=== PATIENT | female | born 1940 | race Caucasian/White ===

== ENCOUNTER 2019-08-24 11:21 | Inpatient (IN) | payer MEDICARE, OTHER, SELFPAY ==
[2019-08-24] VITALS (74 sets, daily range): BP systolic 48–141; BP diastolic 13–112; PULSE 0–165; RESP 14–40; O2SAT 82–100; BMI 21.4
--- NOTE | 2019-08-24 11:22 | ED_ITS ---
Entered by Leslie Ndiaye, acting as scribe for Octavio Aly DO HPI - SOB/Dyspnea General: Chief Complaint: General Medical Stated Complaint: resp distress Time Seen by Provider: 08/24/19 11:32 History of Present Illness: HPI Narrative: 78 yo female presents with respiratory distress. Pt had an Igel placed by EMS. Pt was with neighbors and they had been planning to bring her in for chest pain she having had chest pain prior to calling the ambulance pain became worse and they called the ambulance instead. When EMS arrived they report she was vocal they got her loaded up into the ambulance and began driving here she went into a bradycardia and then asystole after 2 rounds of CPR and 2 doses of epi they were able to get her back to use and I gel and were unable to intubate her. Upon arrival here she had spontaneous circulation with I gel in place I gel was immediately removed and patient was intubated see the remainder below. MD elicited complaint: shortness of breath Severity: severe Review of Systems General: Reports: ROS unobtainable due to endotracheal tube and ROS unobtainable due to medical condition PFSH ED PFSH: Statuses (acute, chronic, etc) shown below reflect problem list status as previously entered and may not be historically accurate Medical History Anemia (Acute) Iron deficiency Arthritis (Acute) Atrial fibrillation (Acute) Chronic Cardiopulmonary arrest (Acute) GI bleeding (Acute) Nephrolithiasis (Acute) Pelvic fracture (Acute) Peptic ulcer disease (Acute) Radius fracture (Acute) Renal failure (Acute) Spinal fracture (Acute) Thyroid disease (Acute) Transaminitis (Acute) Ulna fracture (Acute) Surgical History H/O lithotripsy (Acute) H/O: hysterectomy (Acute) Hx of breast augmentation (Acute) Social History Smoking and tobacco status: unknown if ever smoked Physical Exam Narrative: EXAM NARRATIVE: Pt was brought to the ER in respiratory distress, EMS had an Igel placed upon arrival. Pt is unable to answer questions at this time. Const: COMMON NORMALS: negative for oriented x3 GENERAL APPEARANCE: in distress Cardio: COMMON NORMALS: negative for regular rate and negative for regular rhy thm RATE: abnormal rate and tachycardic RHYTHM: abnormal rhythm and abnormal rhythm Neuro: COMMON NORMALS: negative for oriented x3 Procedures Central Line Placement Left SC: Patient Placed on Monitor/Pulse Ox: Yes MD Prep: mask, gown and gloves Central Line Prep: Chlorhexidine scrub Local Anesthetic: lidocaine 1% Ultrasound Used for Placement: Yes Central Line Lumen Inserted: triple Post Procedure: sutured in place, good blood return, all ports aspirated, flushed, capped and sterile dressing applied Post Procedure X-Ray: tip of catheter in good position and no pneumothorax seen Patient Tolerated Procedure: well Complications: none Intubation Time out performed: No sedative: Etomidate paralytic: Succinylcholine Laryngoscope: Vince ET Tube Size: 8.5 ET Tube Uncuffed: No Tube Secured Depth (cm): 22 Tube Secured Location: teeth Tube Placement Confirmation: visualized tube passing through cords, equal breath sounds bilaterally, no breath sounds over epigastrium and confirmation by capnometry Patient Tolerated Procedure: well Intubation Complications: none Course ED course: Consulted Dr. Bonilla as well as Dr. Rowe. Dr. Bonilla will consider taking her to the [facility] they will discuss with Dr. Rowe. Set central line placed in the ER. Reviewed labs with Dr. León. Vital Signs: Vital signs: Vital Signs Pulse Rate 0 L 08/24/19 23:35 Respiratory Rate 14 08/24/19 21:15 Blood Pressure 67/47 08/24/19 22:50 Pulse Oximetry 89 L 08/24/19 23:10 MDM - SOB/Dyspnea Lab Data: Labs: Lab Results 08/24/19 08/24/19 08/24/19 Range/Units 11:32 11:43 11:50 WBC 39.4 H* (4.0-10.0) 10^3/ uL RBC 4.99 (4.1-5.3) 10^6/u L Hgb 15.5 H (11.5-15.3) g/dL Hct 52.2 H (37.0-47.0) % MCV 104.6 H (81-99) fL MCH 31.1 (28.0-34.0) pg MCHC 29.7 L (30.0-36.0) g/dL RDW 15.7 H (12.1-15.1) % Plt Count 293 (130-400) 10^3/c mm MPV 10.9 H (7.4-10.4) fL Neut % (Auto) 90.7 % Lymph % (Auto) 2.3 % [place] % (Auto) 3.7 % Eos % (Auto) 0.0 % Baso % (Auto) 0.1 % Neut # (Auto) 35.7 H (1.8-7.7) 10^3/u L Lymph # (Auto) 0.9 (0.8-4.8) 10^3/u L [place] # (Auto) 1.5 H (0.2-0.9) 10^3/u L Eos # (Auto) 0.0 (0.0-0.8) 10^3/u L Baso # (Auto) 0.0 (0.0-0.1) 10^3/u L Nucleated RBC % (a uto) 0.5 % Total Counted 100 (0-100) Segmented Neutroph ils 53 % Band Neutrophils 41.0 % Lymphocytes (Manua l) 2 % Monocytes (Manual) 3.0 % Absolute Monocytes 1.2 H (0.1-0.6) 10^3/c mm Metamyelocytes 1.0 % Nucleated RBCs # 0.2 /100WBC Platelet Estimate Normal (Normal) Specimen Type Arterial Sample Site Femoral, left ABG pH 6.84 L* (7.35-7.45) ABG pCO2 27.0 L (35-45) mmHg ABG pO2 482.0 H* (80.0-100.0) mmH g ABG HCO3 4.6 L (22-26) mmol/L ABG O2 Saturation 96.8 ABG Base Excess -29.0 L (-2.0-2.0) mmol/ L Felix Test N/a A-a O2 Gradient 178.9 H (5-10) mmHg Hematocrit 47.7 H (37-47) % Hgb O2 Saturation 95.5 (95-100) % Carboxyhemoglobin Not Reportable Methemoglobin 2.6 H (0.4-1.5) % Total Hemoglobin 15.6 (12-16) g/dL Sodium 125.0 L (131-143) mmol/L Potassium 4.6 (3.5-5.0) mmol/L Glucose 150.0 H (70-115) mg/dL Ionized Calcium 1.2 (1.1-1.4) mmol/L Respiration Rate 16.0 % O2 Delivery Device Vent FiO2 100.0 % Tidal Volume 0.45 PEEP 8.0 cmH20 Med Dir ID cak Blood Gas Notified Time 2345 Chloride (98-107) mmol/L Carbon Dioxide (22-29) mmol/L Anion Gap (5-19) BUN (8-23) mg/dL Creatinine (0.5-0.9) mg/dL Calcium (8.5-10.5) mg/dL Iron (37-145) ug/dL TIBC mcg/dl % Saturation (20-50) % Unsat Iron Binding (112-347) ug/dL Total Bilirubin (0.15-1.2) mg/dL AST (0-32) U/L ALT (0-33) U/L Alkaline Phosphata se (35-105) IU/L Troponin T Baselin e (0-10) ng/mL Troponin T 120 Min picayune (0-10) ng/mL Delta Troponin T (0-10) ABS# Total Protein (6.6-8.7) g/dL Albumin (3.5-5.2) g/dL Globulin (1.3-4.6) g/dL Procalcitonin (0-0.5) ng/mL Urine Color Yellow (Yellow) Urine Appearance Cloudy (CLEAR) Urine pH 5 (5-7) Ur Specific Gravit y 1.020 (1.005-1.030) Urine Protein Trace (Negative) Urine Glucose (UA) Norm (Normal) Urine Ketones Negative (Negative) Urine Occult Blood Neg (Negative) Urine Nitrate Negative (Negative) Urine Bilirubin 1+ H (NEGATIVE) Urine Urobilinogen Norm (Negative) mg/dL Ur Leukocyte Jessica ase Negative (Negative) Urine RBC None (0-2) /hpf Urine WBC None (0-5) /hpf Ur Squamous Epith Cells 0-4 H (0-5) Amorphous Sediment 1+ Urine Bacteria 1+ H (NONE) Urine Mucus Trace 08/24/19 08/24/19 08/24/19 Range/Units 11:50 11:50 11:50 WBC (4.0-10.0) 10^3/ uL RBC (4.1-5.3) 10^6/u L Hgb (11.5-15.3) g/dL Hct (37.0-47.0) % MCV (81-99) fL MCH (28.0-34.0) pg MCHC (30.0-36.0) g/dL RDW (12.1-15.1) % Plt Count (130-400) 10^3/c mm MPV (7.4-10.4) fL Neut % (Auto) % Lymph % (Auto) % [place] % (Auto) % Eos % (Auto) % Baso % (Auto) % Neut # (Auto) (1.8-7.7) 10^3/u L Lymph # (Auto) (0.8-4.8) 10^3/u L [place] # (Auto) (0.2-0.9) 10^3/u L Eos # (Auto) (0.0-0.8) 10^3/u L Baso # (Auto) (0.0-0.1) 10^3/u L Nucleated RBC % (a uto) % Total Counted (0-100) Segmented Neutroph ils % Band Neutrophils % Lymphocytes (Manua l) % Monocytes (Manual) % Absolute Monocytes (0.1-0.6) 10^3/c mm Metamyelocytes % Nucleated RBCs # /100WBC Platelet Estimate (Normal) Specimen Type Sample Site ABG pH (7.35-7.45) ABG pCO2 (35-45) mmHg ABG pO2 (80.0-100.0) mmH g ABG HCO3 (22-26) mmol/L ABG O2 Saturation ABG Base Excess (-2.0-2.0) mmol/ L Felix Test A-a O2 Gradient (5-10) mmHg Hematocrit (37-47) % Hgb O2 Saturation (95-100) % Carboxyhemoglobin Methemoglobin (0.4-1.5) % Total Hemoglobin (12-16) g/dL Sodium 124 L (131-143) mmol/L Potassium 5.2 H (3.5-5.0) mmol/L Glucose 147 H (70-115) mg/dL Ionized Calcium (1.1-1.4) mmol/L Respiration Rate % O2 Delivery Device FiO2 % Tidal Volume PEEP cmH20 Med Dir ID Blood Gas Notified Time Chloride 93 L (98-107) mmol/L Carbon Dioxide 4 L* (22-29) mmol/L Anion Gap 32.2 H (5-19) BUN 74 H (8-23) mg/dL Creatinine 6.9 H* (0.5-0.9) mg/dL Calcium 9.3 (8.5-10.5) mg/dL Iron 67 (37-145) ug/dL TIBC 180 mcg/dl % Saturation 37.2 (20-50) % Unsat Iron Binding 113 (112-347) ug/dL Total Bilirubin 0.3 (0.15-1.2) mg/dL AST 94 H (0-32) U/L ALT 39 H (0-33) U/L Alkaline Phosphata se 134 H (35-105) IU/L Troponin T Baselin e 195 H* (0-10) ng/mL Troponin T 120 Min picayune (0-10) ng/mL Delta Troponin T (0-10) ABS# Total Protein 7.7 (6.6-8.7) g/dL Albumin 3.8 (3.5-5.2) g/dL Globulin 3.9 (1.3-4.6) g/dL Procalcitonin 56.49 H (0-0.5) ng/mL Urine Color (Yellow) Urine Appearance (CLEAR) Urine pH (5-7) Ur Specific Gravit y (1.005-1.030) Urine Protein (Negative) Urine Glucose (UA) (Normal) Urine Ketones (Negative) Urine Occult Blood (Negative) Urine Nitrate (Negative) Urine Bilirubin (NEGATIVE) Urine Urobilinogen (Negative) mg/dL Ur Leukocyte Jessica ase (Negative) Urine RBC (0-2) /hpf Urine WBC (0-5) /hpf Ur Squamous Epith Cells (0-5) Amorphous Sediment Urine Bacteria (NONE) Urine Mucus 08/24/19 08/24/19 Range/Units 13:05 14:15 WBC (4.0-10.0) 10^3/ uL RBC (4.1-5.3) 10^6/u L Hgb (11.5-15.3) g/dL Hct (37.0-47.0) % MCV (81-99) fL MCH (28.0-34.0) pg MCHC (30.0-36.0) g/dL RDW (12.1-15.1) % Plt Count (130-400) 10^3/c mm MPV (7.4-10.4) fL Neut % (Auto) % Lymph % (Auto) % [place] % (Auto) % Eos % (Auto) % Baso % (Auto) % Neut # (Auto) (1.8-7.7) 10^3/u L Lymph # (Auto) (0.8-4.8) 10^3/u L [place] # (Auto) (0.2-0.9) 10^3/u L Eos # (Auto) (0.0-0.8) 10^3/u L Baso # (Auto) (0.0-0.1) 10^3/u L Nucleated RBC % (a uto) % Total Counted (0-100) Segmented Neutroph ils % Band Neutrophils % Lymphocytes (Manua l) % Monocytes (Manual) % Absolute Monocytes (0.1-0.6) 10^3/c mm Metamyelocytes % Nucleated RBCs # /100WBC Platelet Estimate (Normal) Specimen Type Arterial Sample Site Fem,l ABG pH 6.91 L* (7.35-7.45) ABG pCO2 14.0 L* (35-45) mmHg ABG pO2 231.0 H* (80.0-100.0) mmH g ABG HCO3 2.8 L (22-26) mmol/L ABG O2 Saturation 96.7 ABG Base Excess -28.7 L (-2.0-2.0) mmol/ L Felix Test N/a A-a O2 Gradient 167.9 H (5-10) mmHg Hematocrit 48.5 H (37-47) % Hgb O2 Saturation 96.4 (95-100) % Carboxyhemoglobin Methemoglobin 1.5 (0.4-1.5) % Total Hemoglobin 15.8 (12-16) g/dL Sodium 126.0 L (131-143) mmol/L Potassium 5.4 H (3.5-5.0) mmol/L Glucose 106.0 (70-115) mg/dL Ionized Calcium 1.2 (1.1-1.4) mmol/L Respiration Rate % O2 Delivery Device Vent FiO2 60.0 % Tidal Volume PEEP cmH20 Med Dir ID Cak Blood Gas Notified Time 1320 Chloride (98-107) mmol/L Carbon Dioxide (22-29) mmol/L Anion Gap (5-19) BUN (8-23) mg/dL Creatinine (0.5-0.9) mg/dL Calcium (8.5-10.5) mg/dL Iron (37-145) ug/dL TIBC mcg/dl % Saturation (20-50) % Unsat Iron Binding (112-347) ug/dL Total Bilirubin (0.15-1.2) mg/dL AST (0-32) U/L ALT (0-33) U/L Alkaline Phosphata se (35-105) IU/L Troponin T Baselin e (0-10) ng/mL Troponin T 120 Min picayune 317.30 H (0-10) ng/mL Delta Troponin T 122.30 H* (0-10) ABS# Total Protein (6.6-8.7) g/dL Albumin (3.5-5.2) g/dL Globulin (1.3-4.6) g/dL Procalcitonin (0-0.5) ng/mL Urine Color (Yellow) Urine Appearance (CLEAR) Urine pH (5-7) Ur Specific Gravit y (1.005-1.030) Urine Protein (Negative) Urine Glucose (UA) (Normal) Urine Ketones (Negative) Urine Occult Blood (Negative) Urine Nitrate (Negative) Urine Bilirubin (NEGATIVE) Urine Urobilinogen (Negative) mg/dL Ur Leukocyte Jessica ase (Negative) Urine RBC (0-2) /hpf Urine WBC (0-5) /hpf Ur Squamous Epith Cells (0-5) Amorphous Sediment Urine Bacteria (NONE) Urine Mucus Critical Care Time Critical Care Time: Critical Care Time: Yes Total Critical Care Time: 45 Attestation: This case had a high probability of a clinically significant, sudden, or life threatening deterioration of this patient's condition which required my full and direct attention, intervention and personal management. Discharge Plan Discharge Patient Disposition: Admitted As Inpatient Admit Provider: Ventura León Clinical Impression: Postoperative cardiac arrest, Anemia, Atrial fibrillation, Septic shock, Metabolic acidosis Condition: Critical Discharge Date/Time: 08/24/19 17:30 Coding Level of Care Code ED Customer Orders Clerk for Chg Fwd The documentation recorded by the Senthil cowan Kialy, accurately reflects the service I personally performed and the decisions made by , Octavio Aly, Aug 24, 2019 11:21
--- NOTE | 2019-08-24 11:36 | ECG_ITS ---
Measurements Intervals [place] Rate: 111 P: NH: 0 QRS: 48 QRSD: 93 T: 244 QT: 320 QTc: 435 ATRIAL FIBRILLATION WITH RAPID VENTRICULAR RESPONSE MODERATE T-WAVE ABNORMALITY, CONSIDER ANTEROLATERAL ISCHEMIA [-0.1+ mV T WAVE IN V3 MODERATE T-WAVE ABNORMALITY, CONSIDER INFERIOR ISCHEMIA [-0.1+ mV T WAVE IN II II/aVF] Compared to ECG 07/14/2015 04:13:22 T-wave abnormality now present Possible ischemia now present Electronically Signed On 08-24-2019 18:33:55 MARKETING AUTOMATION MANAGER by Dao Perez M.D. [email or web address]
--- NOTE | 2019-08-24 11:36 | XRR_ITS ---
PROCEDURE INFORMATION: Exam: XR Chest, 1 View Exam date and time: 08/24/2019 11:52 AM Age: 78 years old Clinical indication: Other: Post code TECHNIQUE: Imaging protocol: XR of the chest Views: 1 view. COMPARISON: CR Chest 2 views* [id number] 06/09/2016 3:11 PM FINDINGS: Tubes, catheters and devices: Endotracheal tube is slightly above the bobbi. Nasogastric tube coiled within the stomach Lungs: Lungs are well aerated without a focal area of consolidation. Pleural space: Unremarkable. No pleural effusion. No pneumothorax. Heart/Mediastinum: Unremarkable. No cardiomegaly. Bones/joints: Unremarkable. Other findings: Lucency below the diaphragm suspicious for free air. Recommend further evaluation. XR/XR chest 1V portable [id number] IMPRESSION: 1. Lucency below the diaphragm suspicious for free air. Recommend further evaluation. 2. Lungs are well aerated without a focal area of consolidation.
[2019-08-24 11:44] LABS: ABG PH Result 6.84 (7.35-7.45); Alveolar-Arterial Oxygen Gradi 178.9 mmHg (5-10); Arterial Blood Gas Hematocrit 47.7 % (37-47); Blood Gas Sample Site Femoral, left; Blood Gas Sample Type Arterial; Blood Gas Tidal Volume 0.45; HCO3 ABG 4.6 mmol/L (22-26); HGB O2 Sat 95.5 % (95-100); Ionized Calcium Level - ABG 1.2 mmol/L (1.1-1.4); Methemoglobin 2.6 % (0.4-1.5); Oxygen Device VENT; Oxygen Saturation ABG 96.8; Potassium Level - ABG 4.6 mmol/L (3.5-5.0); Total Hemoglobin 15.6 g/dL (12-16)
[2019-08-24 11:54] LABS: Basophils % 0.1 %; Hematocrit 52.2 % (37.0-47.0); Hemoglobin 15.5 g/dL (11.5-15.3); Lymphocytes # 0.9 10^3/uL (0.8-4.8); Lymphocytes % 2.3 %; Mean Corpuscular HGB Conc 29.7 g/dL (30.0-36.0); Mean Corpuscular Hemoglobin 31.1 pg (28.0-34.0); Mean Corpuscular Volume 104.6 fL (81-99); Mean Platelet Volume 10.9 fL (7.4-10.4); Monocytes # 1.5 10^3/uL (0.2-0.9); Monocytes % 3.7 %; Neutrophils # 35.7 10^3/uL (1.8-7.7); Neutrophils % 90.7 %; Nucleated Red Blood Cells # 0.2 /100WBC; Nucleated Red Blood Cells % 0.5 %; Platelet Count 293 10^3/cmm (130-400); Red Blood Count 4.99 10^6/uL (4.1-5.3); Red Cell Distribution Width 15.7 % (12.1-15.1)
[2019-08-24 12:19] LABS: Albumin Level 3.8 g/dL (3.5-5.2); Alkaline Phosphatase 134 IU/L (35-105); Anion Gap 32.2 (5-19); Blood Urea Nitrogen 74 mg/dL (8-23); Calcium 9.3 mg/dL (8.5-10.5); Chloride 93 mmol/L (98-107); Globulin 3.9 g/dL (1.3-4.6); Glucose 147 mg/dL (74-106); Potassium 5.2 mmol/L (3.5-5.1); Sodium 124 mmol/L (136-145); Total Bilirubin 0.3 mg/dL (0.15-1.2); Total Protein 7.7 g/dL (6.6-8.7)
[2019-08-24 12:20] LABS: Alanine Aminotransferase 39 U/L (0-33); Aspartate Amino Transferase 94 U/L (0-32)
[2019-08-24 12:21] LABS: Carbon Dioxide 4 mmol/L (22-29); Troponin(5th) Baseline 195 ng/mL (0-10)
[2019-08-24 12:22] LABS: Slide Review Slide Review Perform
[2019-08-24 12:23] LABS: White Blood Count 39.4 10^3/uL (4.0-10.0)
[2019-08-24] MEDS: propofol 1,000 MG/100 ML INJ 1.7 MG IV (12:24)
[2019-08-24 12:25] LABS: Absolute Segmented Neutrophil 20.8 10/cmm (1.6-7.1); Band Neutrophils Absolute 16.2 10^3/cmm (0.0-1.2); Lymphocytes 2 %; Monocytes Absolute 1.2 10^3/cmm (0.1-0.6); Platelet Estimate Normal (Normal); Segmented Neutrophils 53 %; Total Cells Counted 100 (0-100)
--- NOTE | 2019-08-24 13:13 | CT_ITS ---
WS: [id number] CT ABDOMEN PELVIS TECHNIQUE: Noncontrast CT of the abdomen and pelvis with coronal and sagittal reformatted images. CLINICAL INFORMATION: abd pain/ sub diaphragmatic air? COMPARISON: None. DLP: 414.[address] scans at [facility] use at least one of these dose optimization techniques: automat ed exposure control; mA and/or kV adjustment per patient size (includes targeted exams where dose is matched to clinical indication); or iterative reconstruction. FINDINGS: No free air. Enteric tube with tip in the stomach. Stomach is decompressed. Proximal duodenum is deco mpressed. Air distended colon. Fluid distended cecum extends into the pelvis. Air-fluid levels in the right colon, transverse colon, and splenic flexure.. Findings likely due to adynamic ileus. Left brandin cending colon is relatively decompressed. Sigmoid colon is decompressed. Normal noncontrast liver. Normal gallbladder. Normal noncontrast spleen. Adrenal glands are normal. N o hydronephrosis. Aortic calcification. Normal caliber abdominal aorta. Chronic emphysematous changes . Atelectasis right lung base. Prior postoperative changes bilateral breast implants. Grade 1 anterol isthesis L4 on L5. Attempted notification Octavio Aly DO at 08/24/2019 2:21 PM. Not currently available for verbal report. CT/CT abdomen pelvis wo con [id number] IMPRESSION: 1. Fluid-filled patulous cecum extends into the pelvis. Prominent gaseous dist ention and air-fluid levels in the right colon and transverse colon likely due to adynamic ileus. Left colon and sigmoid colon appear decompressed. 2. Enteric tube with tip in the stomach. 3. No free air. 4. No hydronephrosis. 5. Normal caliber abdominal aorta. 6. No free fluid in the pelvis. 7. Rivers catheter. 8. Grade 1 anterolisthesis L4 on L5.
[2019-08-24 13:15] LABS: Protein Urine Trace (Negative); Urine Appearance Cloudy (CLEAR); Urine Color Yellow (Yellow); pH Urine 5 (5-7)
[2019-08-24 13:16] LABS: Add Urine Microscopic? YES; Bilirubin Urine 1+ (NEGATIVE); Blood Urine Neg (Negative); Glucose Urine UA Norm (Normal); Ketones Urine Negative (Negative); Leukocyte Esterase Urine Negative (Negative); Nitrate Urine Negative (Negative); Urobilinogen Urine Norm (Negative)
--- NOTE | 2019-08-24 13:36 | ECG_ITS ---
Measurements Intervals [place] Rate: 131 P: MD: 0 QRS: 52 QRSD: 89 T: 242 QT: 343 QTc: 507 ATRIAL FIBRILLATION WITH RAPID VENTRICULAR RESPONSE LOW QRS VOLTAGE IN EXTREMITY LEADS [QRS DEFLECTION < 0.5 mV IN LIMB LEADS] ST DEVIATION AND MODERATE T-WAVE ABNORMALITY, CONSIDER ANTEROLATERAL ISCHEMIA [-0.1+ mV T WAVE IN V3-V6] ST DEVIATION AND MODERATE T-WAVE ABNORMALITY, CONSIDER INFERIOR ISCHEMIA [-0.1+ mV T WAVE IN II/aVF] WARNING: DATA QUALITY MAY AFFECT INTERPRETATION Compared to ECG 07/14/2015 04:13:22 Low QRS voltage now present T-wave abnormality now present Possible ischemia now present Electronically Signed On 08-24-2019 18:38:28 URGENT CARE by Dao Perez M.D. [email or web address]
[2019-08-24 13:41] LABS: Add Urine Culture? No; Amorphous Sediment Urine 1+; Bacteria Urine 1+; Mucus Urine TRACE; Squamous Epithelial Cell Urine 0-4 (0-5)
--- NOTE | 2019-08-24 14:37 | CTR_ITS ---
PROCEDURE INFORMATION: Exam: CT Chest Without Contrast Exam date and time: 08/24/2019 3:26 PM Age: 78 years old Clinical indication: Shortness of breath; Additional info: Copd/pna TECHNIQUE: Imaging protocol: Computed tomography of the chest without contrast. Total DLP: 612.66 mGy-cm Radiation optimization: All CT scans at this facility use at least one of these dose optimization techniques: automated exposure control; mA and/or kV adjustment per patient size (includes targeted exams where dose is matched to clinical indication); or iterative reconstruction. COMPARISON: CR XR chest 1V portable [id number] 08/24/2019 11:56 AM FINDINGS: Tubes, catheters and devices: NG tube tip in the stomach. Endotracheal tube at the bobbi. Lungs: Partial right lower lobe consolidation and minimal partial right upper lobe consolidation, no obstructing central endobronchial lesion. Pleural space: No pleural effusion. No pneumothorax. Heart: No cardiomegaly. No pericardial effusion. Aorta: No aortic aneurysm. Lymph nodes: No significant adenopathy. Bones/joints: No acute findings. Soft tissues: Bilateral breast implants. CT/CT chest con [id number] IMPRESSION: Right lung pneumonia most prominent in the right lower lobe. Endotracheal tube tip at the bobbi. Radiation Dose CTDIVOL = (mGy): DLP = 612.66 (mGy-cm)
--- NOTE | 2019-08-24 14:56 | PC.NURSE ---
Anabela in lab reported a critical 2 hour trop of 317.30 and 2 hour delta 122.30
[2019-08-24] MEDS: vecuronium 10 mg SDV IV (15:04)
[2019-08-24] MEDS: levofloxacin-dextrose 5 % 500 MG/100 ML PREMIX 100 MG IV (15:05)
[2019-08-24 15:12] LABS: ABG PCO2 27.2 mmHg (35-45); ABG PH Result 6.95 (7.35-7.45); Arterial Blood Gas Hematocrit 47.4 % (37-47); Base Excess ABG -25.2 mmol/L (-2.0-2.0); Blood Gas Sample Site Femoral, left; Blood Gas Sample Type Arterial; Blood Gas Tidal Volume 0.45; HGB O2 Sat 94.4 % (95-100); Ionized Calcium Level - ABG 1.1 mmol/L (1.1-1.4); Methemoglobin 3.1 % (0.4-1.5); Oxygen Device VENT; Oxygen Saturation ABG 96.4; Potassium Level - ABG 4.8 mmol/L (3.5-5.0); Total Hemoglobin 15.5 g/dL (12-16)
[2019-08-24] MEDS: sodium chloride 0.9% 1,000 ML 999 ML IV (15:13)
[2019-08-24] MEDS: sodium bicarbonate 8.4% 1 mEq/mL 50mL Syr 100 MEQ IVP (15:16)
[2019-08-24] MEDS: artificial tears Op Oint 3.5 gm 1 APPLIC EYE-BOTH (15:33)
[2019-08-24] MEDS: sodium chlor 0.9% + KCl 20 mEq 20 MEQ/1,000 ML BAG 125 MEQ IV (15:38)
[2019-08-24 15:45] LABS: Procalcitonin 56.49 ng/mL (0-0.5)
[2019-08-24] MEDS: vancomycin 1,000 MG in sodium chloride 0.9% 250 ML 250 MG IV (15:55)
[2019-08-24 15:56] LABS: Iron 67 ug/dL (37-145); Percent Saturation 37.2 % (20-50); Total Iron Binding Capacity 180 mcg/dl; Unsaturated Iron Binding 113 ug/dL (112-347)
--- NOTE | 2019-08-24 16:04 | PC.NURSE ---
too fast to do the procedure. Pt is now in A-fib.
--- NOTE | 2019-08-24 16:18 | P.DS_ITS ---
Discharge Providers Date of Admission: 08/24/19 14:16 Date of Discharge: 08/24/19 Attending Provider at Admission: Ventura León MD Attending Provider at Discharge: Ventura León MD Primary Care Provider: Aditi Colon MD Reason for Visit Reason for Visit: Reason For Visit: resp distress Physical Exam Urinary Catheter Management^: Rivers: Cath Placed During This Visit: no Discharge Data Data Completed and Pending: Completed Studies During Hospitalization Category Date Time Status CT abdomen pelvis wo con [id number] Stat Cat Scan 08/24/19 13:13 Completed XR chest 1V rosemary ble [id number] Stat Exams 08/24/19 11:36 Completed Pending at discharge Category Date Time Status CT chest wo con 7 1250 Urgent Cat Scan 08/24/19 14:37 Ordered ABG FULL [Arteria l Blood Gas Full] Routine Lab 08/24/19 11:32 Results Arterial Blood Ga s Full Routine Lab 08/24/19 Ordered Arterial Blood Ga s Full Routine Lab 08/24/19 15:00 Results Basic Metabolic P mimi Timed Lab 08/24/19 18:00 Ordered Blood Culture Sta t Lab 08/24/19 12:51 Results Influenza A&B by IFA Stat Lab 08/24/19 11:36 Uncollected MRSA by PCR Routi ne Lab 08/24/19 14:37 Uncollected Rapid Flu A&B Swa b [Influenza A&B b y IFA] Routine Lab 08/24/19 14:37 Uncollected Sputum Culture an d Gram Stain Stat Lab 08/24/19 11:55 Results Troponin(5th) 6 h our. Timed Lab 08/24/19 17:36 Ordered Urine Random Lyte s Stat Lab 08/24/19 14:37 Uncollected CV echo complete* [id number] Routine Ultrasound 08/25/19 07:00 Ordered Labs from last 24 hours 08/24/19 08/24/19 08/24/19 15:00 14:15 11:50 WBC RBC Hgb Hct MCV MCH MCHC RDW Plt Count MPV Neut % (Auto) Lymph % (Auto) Mcmullen % (Auto) Eos % (Auto) Baso % (Auto) Neut # (Auto) Lymph # (Auto) Mcmullen # (Auto) Eos # (Auto) Baso # (Auto) Nucleated RBC % (a uto) Total Counted Segmented Neutroph ils Band Neutrophils Lymphocytes (Manua l) Monocytes (Manual) Absolute Monocytes Metamyelocytes Nucleated RBCs # Platelet Estimate Specimen Type Arterial Sample Site Femoral, left ABG pH 6.95 L* ABG pCO2 27.2 L ABG pO2 213.0 H* ABG HCO3 6.0 L ABG O2 Saturation 96.4 ABG Base Excess -25.2 L Felix Test N/a A-a O2 Gradient Hematocrit 47.4 H Hgb O2 Saturation 94.4 L Carboxyhemoglobin Pending Methemoglobin 3.1 H Total Hemoglobin 15.5 Sodium 127.0 L Potassium 4.8 Glucose 104.0 Ionized Calcium 1.1 Respiration Rate 14.0 O2 Delivery Device Vent FiO2 0.0 Tidal Volume 0.45 PEEP 6.0 Putty And Caulking Supervisor ID cak Chloride Carbon Dioxide Anion Gap BUN Creatinine Calcium Iron 67 TIBC 180 % Saturation 37.2 Unsat Iron Binding 113 Total Bilirubin AST ALT Alkaline Phosphata se Troponin T Baselin e Troponin T 120 Min cahto 317.30 H Delta Troponin T 122.30 H* Total Protein Albumin Globulin Procalcitonin 56.49 H Urine Color Urine Appearance Urine pH Ur Specific Gravit y Urine Protein Urine Glucose (UA) Urine Ketones Urine Occult Blood Urine Nitrate Urine Bilirubin Urine Urobilinogen Ur Leukocyte Jessica ase Urine RBC Urine WBC Ur Squamous Epith Cells Amorphous Sediment Urine Bacteria Urine Mucus 08/24/19 08/24/19 08/24/19 11:50 11:50 11:50 WBC 39.4 H* RBC 4.99 Hgb 15.5 H Hct 52.2 H MCV 104.6 H MCH 31.1 MCHC 29.7 L RDW 15.7 H Plt Count 293 MPV 10.9 H Neut % (Auto) 90.7 Lymph % (Auto) 2.3 Mcmullen % (Auto) 3.7 Eos % (Auto) 0.0 Baso % (Auto) 0.1 Neut # (Auto) 35.7 H Lymph # (Auto) 0.9 Mcmullen # (Auto) 1.5 H Eos # (Auto) 0.0 Baso # (Auto) 0.0 Nucleated RBC % (a uto) 0.5 Total Counted 100 Segmented Neutroph ils 53 Band Neutrophils 41.0 Lymphocytes (Manua l) 2 Monocytes (Manual) 3.0 Absolute Monocytes 1.2 H Metamyelocytes 1.0 Nucleated RBCs # 0.2 Platelet Estimate Normal Specimen Type Sample Site ABG pH ABG pCO2 ABG pO2 ABG HCO3 ABG O2 Saturation ABG Base Excess Felix Test A-a O2 Gradient Hematocrit Hgb O2 Saturation Carboxyhemoglobin Methemoglobin Total Hemoglobin Sodium 124 L Potassium 5.2 H Glucose 147 H Ionized Calcium Respiration Rate O2 Delivery Device FiO2 Tidal Volume PEEP Putty And Caulking Supervisor ID Chloride 93 L Carbon Dioxide 4 L* Anion Gap 32.2 H BUN 74 H Creatinine 6.9 H* Calcium 9.3 Iron TIBC % Saturation Unsat Iron Binding Total Bilirubin 0.3 AST 94 H ALT 39 H Alkaline Phosphata se 134 H Troponin T Baselin e 195 H* Troponin T 120 Min cahto Delta Troponin T Total Protein 7.7 Albumin 3.8 Globulin 3.9 Procalcitonin Urine Color Urine Appearance Urine pH Ur Specific Gravit y Urine Protein Urine Glucose (UA) Urine Ketones Urine Occult Blood Urine Nitrate Urine Bilirubin Urine Urobilinogen Ur Leukocyte Jessica ase Urine RBC Urine WBC Ur Squamous Epith Cells Amorphous Sediment Urine Bacteria Urine Mucus 08/24/19 08/24/19 11:43 11:32 WBC RBC Hgb Hct MCV MCH MCHC RDW Plt Count MPV Neut % (Auto) Lymph % (Auto) Mcmullen % (Auto) Eos % (Auto) Baso % (Auto) Neut # (Auto) Lymph # (Auto) Mcmullen # (Auto) Eos # (Auto) Baso # (Auto) Nucleated RBC % (a uto) Total Counted Segmented Neutroph ils Band Neutrophils Lymphocytes (Manua l) Monocytes (Manual) Absolute Monocytes Metamyelocytes Nucleated RBCs # Platelet Estimate Specimen Type Arterial Sample Site Femoral, left ABG pH 6.84 L* ABG pCO2 27.0 L ABG pO2 482.0 H* ABG HCO3 4.6 L ABG O2 Saturation 96.8 ABG Base Excess -29.0 L Felix Test N/a A-a O2 Gradient 178.9 H Hematocrit 47.7 H Hgb O2 Saturation 95.5 Carboxyhemoglobin Pending Methemoglobin 2.6 H Total Hemoglobin 15.6 Sodium 125.0 L Potassium 4.6 Glucose 150.0 H Ionized Calcium 1.2 Respiration Rate 16.0 O2 Delivery Device Vent FiO2 100.0 Tidal Volume 0.45 PEEP 8.0 Putty And Caulking Supervisor ID cak Chloride Carbon Dioxide Anion Gap BUN Creatinine Calcium Iron TIBC % Saturation Unsat Iron Binding Total Bilirubin AST ALT Alkaline Phosphata se Troponin T Baselin e Troponin T 120 Min cahto Delta Troponin T Total Protein Albumin Globulin Procalcitonin Urine Color Yellow Urine Appearance Cloudy Urine pH 5 Ur Specific Gravit y 1.020 Urine Protein Trace Urine Glucose (UA) Norm Urine Ketones Negative Urine Occult Blood Neg Urine Nitrate Negative Urine Bilirubin 1+ H Urine Urobilinogen Norm Ur Leukocyte Jessica ase Negative Urine RBC None Urine WBC None Ur Squamous Epith Cells 0-4 H Amorphous Sediment 1+ Urine Bacteria 1+ H Urine Mucus Trace Vitals: Last Vital Signs Pulse 124 H 08/24/19 11:22 Resp 33 H 08/24/19 14:11 BP 82/61 08/24/19 11:22 Pulse Ox 100 08/24/19 11:22 Discharge Plan Discharge Condition: Critical Prescriptions: No Action Unable to Assess RF: 0 Coding Level of Care Code 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
--- NOTE | 2019-08-24 16:19 | PM.HP ---
Providers/Chief Complaint Admitting Physician: Ventura León MD Primary Care Provider: Aditi Colon MD Chief Complaint: resp distress History of Present Illness Elo Martin is a 78 year old female with past medical history of atrial fibrillation, hypothyroidism, chronic kidney disease who was brought to the hospital by the EMS today. As per the neighbors who are the caregiver of the patient she has been complaining of chest congestion for last 1 week and was not able to breathe today morning so EMS was called. When EMS reached the patient she was found to be in asystole and she achieved [place] after around 4 cycles of CPR. Lama was placed in but on presentation to the ER it was found to be in her esophagus. She was found to have distention of her abdomen and extensive air in the belly. Patient was intubated and NG tube was placed. On my evaluation to the patient she is on Levophed at 10 with heart rate at 90 bpm and blood pressure at 110/80 she is responding to verbal stimulus and blinking her eyes but is not moving her limbs. All the peripheries are cyanosed. Labs have been reviewed. Review of Systems General: Reports: ROS unobtainable due to endotracheal tube Medications/Allergies Home Medications Medication Instructions Recorded Confirmed Last Taken Type Unable to Assess 08/24/19 08/24/19 Unknown History PFSH Acute PFSH: Statuses (acute, chronic, etc) shown below reflect problem list status as previously entered and may not be historically accurate Medical History (Updated 08/24/19 @ 16:40 by Ventura León MD) Anemia (Acute) Arthritis (Acute) Atrial fibrillation (Acute) GI bleeding (Acute) Nephrolithiasis (Acute) Pelvic fracture (Acute) Peptic ulcer disease (Acute) Radius fracture (Acute) Renal failure (Acute) Spinal fracture (Acute) Thyroid disease (Acute) Ulna fracture (Acute) Surgical History (Updated 08/24/19 @ 11:37 by Leslie Ndiaye) H/O lithotripsy (Acute) H/O: hysterectomy (Acute) Hx of breast augmentation (Acute) Social History Smoking and tobacco status: unknown if ever smoked Vitals/I&O/Wt Last Vital Signs Pulse 124 H 08/24/19 11:22 Resp 33 H 08/24/19 14:11 BP 82/61 08/24/19 11:22 Pulse Ox 100 08/24/19 11:22 Weight last 48 hrs Weight 56.699 kg Physical Exam Narrative: EXAM NARRATIVE: General: Intubated HEENT: PERRLA, pupils bilaterally equal and sluggishly reactive to light Chest: Bilateral bronchial breath sounds, coarse crepitations in right lower zone, no other added sounds, equal air entry both sides. CVS: S1-S2 irregular, no murmurs, no tachycardia, no gallops, no rubs Abdomen: Soft, nontender, no organomegaly, bowel sounds present Neuro: GCS: E1 M1 ET, Extremities: All peripheral pulses are present, all extremities cyanosis and mottled. Urinary Catheter Management^: Rivers: Cath Placed During This Visit: no Data : 08/24/19 11:50 08/24/19 11:50 Micro: Microbiology 08/24/19 11:55 Gram Stain - Final Sputum - Endotracheal Tube Aspirate 08/24/19 12:51 Blood Culture - Preliminary Blood SPECIMEN COLLECTED 08/24/19 12:05 Blood Culture - Preliminary Blood SPECIMEN COLLECTED A&P Assessment and plan (1) Postoperative cardiac arrest: Status: Acute (2) Septic shock: Status: Acute Code(s): A41.9 - Sepsis, unspecified organism; R65.21 - Severe sepsis with septic shock (3) Kidney failure: Status: Acute Code(s): N19 - Unspecified kidney failure (4) Metabolic acidosis: Status: Acute Code(s): E87.2 - Acidosis (5) Hyperkalemia: Status: Acute Code(s): E87.5 - Hyperkalemia (6) Hyponatremia: Status: Acute Code(s): E87.1 - Hypo-osmolality and hyponatremia (7) Poor prognosis: Status: Acute Code(s): Z78.9 - Other specified health status Additional A&P Information Post cardiac arrest: Most likely due to septic shock: 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 We will try sedation vacation tomorrow morning to assess brain functions. CT head without contrast to rule out stroke. Patient would most likely need reimaging possibly tomorrow for possible anoxic brain injury. Cardiovascular: Patient is severely dehydrated at present. Keep mean arterial pressure over 65 mmHg. Continue titration of Levophed as required. If needed can add vasopressin. Continue IV fluids at 100 cc/h after normal saline bolus of 2 L over 45 minutes. Infectious: Start on Zosyn and vancomycin both renally dosed. UA, urine culture, blood culture, sputum culture Gram stain, procalcitonin, TSH. Check MRSA swab, flu swab. We will de-escalate according to culture results. Start CT chest without contrast. CT abdomen pelvis without contrast already done. Renal: Acute renal failure/severe metabolic acidosis/hyperkalemia/hyponatremia Most likely due to septic shock. Patient has baseline CKD with baseline creatinine of around 2.5 that was 5 years ago. There is no labs in our system after that. Start 100 mEq of sodium bicarbonate. Followed by sodium bicarb drip at 200 mL's per hour. We will consult nephrology for possible dialysis. We will consult surgery for possible temporary dialysis catheter placement. Repeat BMP at 6 PM. Respiratory: Keep saturation over 92%. Ventilator settings at tidal volume of 400, respiratory rate of 14, FiO2 of 40%, PEEP of 6. We will check ABG in 1 hour and change ventilator settings accordingly. Start on DuoNeb's [id number] and budesonide twice daily. Heme: We will check iron panel. Hemoglobin most likely concentrated right now. Heparin 5000 every 12 for DVT prophylaxis. GI: NG tube placed. We will continue to leave to gravity. Protonix 40 mg daily for PUD prophylaxis. N.p.o. for now. Social: We do not have a next of kin for now. Will involve public health social worker as a consult for further help. We will treat as full code for now: N.p.o. for now. Very guarded prognosis given the severe metabolic acidosis along with septic shock and as patient is post cardiac arrest not really sure hypoxic for how long. 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
[2019-08-24] MEDS: sodium bicarbonate 150 MEQ in dextrose 5% 1,000 ML 10 MEQ IV (16:26)
--- NOTE | 2019-08-24 16:27 | PC.NURSE ---
Dose for sodium bicarb drip was 10 mls an hour. Chuy wanted 10meq an hour. So dose was changed to 67 mls an hout
--- NOTE | 2019-08-24 16:42 | CTR_ITS ---
PROCEDURE INFORMATION: Exam: CT Head Without Contrast Exam date and time: 08/24/2019 4:55 PM Age: 78 years old Clinical indication: Coma or unconsciousness; Additional info: Stroke, post cardiac arrest TECHNIQUE: Imaging protocol: Computed tomography of the head without contrast. Total DLP: 822.37 mGy-cm Radiation optimization: All CT scans at this facility use at least one of these dose optimization techniques: automated exposure control; mA and/or kV adjustment per patient size (includes targeted exams where dose is matched to clinical indication); or iterative reconstruction. Other technique: STROKE PROTOCOL was implemented. COMPARISON: CT head wo con* [id number] 10/18/2016 10:02 PM FINDINGS: Brain: No hemorrhage. No edema or mass effect. Ventricles: Normal. No ventriculomegaly. Bones/joints: Unremarkable. No acute fracture. Sinuses: No acute sinusitis. Mastoid air cells: Unremarkable. Soft tissues: Unremarkable. CT/CT head wo con* [id number] IMPRESSION: No acute findings or interval change. ASSESSMENT: ASPECTS ([place] Stroke Program Early CT Score) is 10. Radiation Dose CTDIVOL = (mGy): DLP = 822.37 (mGy-cm)
--- NOTE | 2019-08-24 16:59 | PM.CONSULT ---
Providers/Reason For Consult Consulting Physican/Specialty*: Cardiovascular medicine Reason for Consult*: Cardiopulmonary arrest Attending Physician: Ventura León MD Primary Care Provider: Aditi Colon MD History of Present Illness History of Present Illness Elo Martin is a 78 year old female who was brought in by ambulance today. She is currently intubated and sedated and no family is available. The information is taken from the chart. I also spoke to the emergency room physician. She apparently had not been feeling well for several days and complained of being congested . According to the emergency room physician she complained of chest pain earlier today and was short of breath. She progressively worsened rather quickly at home and a neighbor called 911. When the ambulance arrived she apparently had an episode of bradycardia and CPR was started. She was given 2 doses of epinephrine in route. Here in the emergency room she was intubated using etomidate and succinylcholine. This was after a esophageal airway was removed and she failed to breathe on her own. She was hypotensive. Dopamine was originally started but this did not help with her blood pressure. She was then changed to Levophed where she is now. Her blood pressure now is 132/54. Her baseline rhythm is atrial fibrillation. She is still in atrial fibrillation. Atrial fibrillation is chronic for her. She has been in this for several years. She is also being treated with propofol. She has received a dose of vancomycin and Levaquin. She has been given 4 A of bicarbonate and another 3 A were placed in a liter of dextrose solution and is being run. Patient has a number of blood gas and electrolyte abnormalities. Her white blood cell count is almost 40,000. We were asked to see her because of the original EKG. It revealed atrial fibrillation with very minimal ST segment elevation in leads II, 3, aVF and the lateral precordial leads. There was originally a concern for a STEMI. Second EKG showed atrial fibrillation however the ST segments are back to normal. There may be some lead misplacement on the second EKG. Upon looking at the EKGs and having a chance to evaluate some of the early laboratory data, it does not appear as though this is an acute TX but rather sepsis. Therefore, we decided against acute coronary angiography. She has no evidence of coronary disease in the past. She had a sestamibi examination in 2013 which was negative for ischemia. She also had an echocardiogram 2 months ago which revealed an ejection fraction of 60% with normal LV function and a pulmonary artery pressure of 41 mmHg. She had mild mitral regurgitation. Obviously she is unable to give a history. She remains sedated and intubated. Review of Systems General: Reports: ROS unobtainable due to endotracheal tube Meds/Allergies Home Medications and Allergies Home Medications Medication Instructions Recorded Confirmed Type Unable to Assess 08/24/19 08/24/19 History Current Medications Current Medications Generic Name Dose Route Start Last Admin Trade Name Vivek PRN Reason Stop Dose Admin Norepinephrine Bitartrate 4 mg 254 mls @ 0 mls/hr 08/24/19 11:45 08/24/19 12:25 / Dextrose IV 2 mcg/min .Q0M DECLAN 7.6 mls/hr Administration Protocol Per Protocol Propofol 1,000 mg in 100 mls @ 0 mls/hr 08/24/19 12:15 08/24/19 12:24 Diprivan IV 5 mcg/kg/min .Q0M DECLAN 1.7 mls/hr Administration Protocol Per Protocol Sodium Bicarbonate 150 meq/ 1,150 mls @ 200 mls/hr 08/24/19 14:45 08/24/19 16:26 Dextrose IV 10 mls/hr .Q5H45M DECLAN Administration PFSH Acute PFSH: Statuses (acute, chronic, etc) shown below reflect problem list status as previously entered and may not be historically accurate Medical History (Updated 08/24/19 @ 17:07 by Willian Irizarry MD) Anemia (Acute) Iron deficiency Arthritis (Acute) Atrial fibrillation (Acute) Chronic Cardiopulmonary arrest (Acute) GI bleeding (Acute) Nephrolithiasis (Acute) Pelvic fracture (Acute) Peptic ulcer disease (Acute) Radius fracture (Acute) Renal failure (Acute) Spinal fracture (Acute) Thyroid disease (Acute) Transaminitis (Acute) Ulna fracture (Acute) Surgical History H/O lithotripsy (Acute) H/O: hysterectomy (Acute) Hx of breast augmentation (Acute) Social History Smoking and tobacco status: unknown if ever smoked Vitals/I&O/Wt Last Vital Signs Pulse 124 H 08/24/19 11:22 Resp 33 H 08/24/19 14:11 BP 82/61 08/24/19 11:22 Pulse Ox 100 01/29/20 11:22 Weight last 48 hrs Weight 125 lb Physical Exam Narrative: EXAM NARRATIVE: GENERAL: In general she is sedated intubated lying flat on the gurney HEENT: Exam within normal limits. NECK: Supple without jugular vein distention. The carotid upstroke is normal without bruits. BACK: Exam normal. LUNGS: Clear. HEART: Irregular rate and rhythm ABDOMEN: Benign without organomegaly or tenderness. EXTREMITIES: No edema. NEUROLOGIC: Exam not done SKIN: Unremarkable. Urinary Catheter Management^: Rivers: Cath Placed During This Visit: no Data Micro: Micro: Microbiology 08/24/19 11:55 Gram Stain - Final Sputum - Endotrac heal Tube Aspirate 08/24/19 12:51 Blood Culture - Pr eliminary Blood SPECIMEN COLLEC JOYCE 08/24/19 12:05 Blood Culture - Pr eliminary Blood SPECIMEN [facility] Other Data: Other data: First troponin I 95. 2-hour troponin III 17. Telemetry monitoring strips have revealed atrial fibrillation. The first EKG revealed atrial fibrillation with minimal ST segment elevation in leads II, 3, aVF and the lateral precordial leads. The second about an hour later revealed atrial fibrillation with normalization of the ST segments. Chest x-ray was unremarkable and suggested the possibility of free air. The CT scan of the abdomen and pelvis revealed fluid-filled cecum with no free air and an adynamic ileus. First arterial blood gas PO2 42, P CO2 27 and pH 6.84. Second arterial blood gas PO2 213, PCO2 27 and pH 6.95. AST 94 and ALT 39. Alkaline phosphatase 134. Sodium 124, potassium 5.2. Creatinine is 6.9. Serum bicarbonate is 4. A&P Assessment and plan (1) Atrial fibrillation: Status: Acute Code(s): I48.91 - Unspecified atrial fibrillation (2) Hyponatremia: Status: Acute Code(s): E87.1 - Hypo-osmolality and hyponatremia (3) Hyperkalemia: Status: Acute Code(s): E87.5 - Hyperkalemia (4) Metabolic acidosis: Status: Acute Code(s): E87.2 - Acidosis (5) Kidney failure: Status: Acute Code(s): N19 - Unspecified kidney failure (6) Septic shock: Status: Acute Code(s): A41.9 - Sepsis, unspecified organism; R65.21 - Severe sepsis with septic shock (7) Transaminitis: Status: Acute Code(s): R74.0 - Nonspecific elevation of levels of transaminase and lactic acid dehydrogenase [LDH] (8) Elevated troponin: Status: Acute Code(s): R79.89 - Other specified abnormal findings of blood chemistry (9) Cardiopulmonary arrest: Status: Acute Code(s): I46.9 - Cardiac arrest, cause unspecified Additional A&P Information The labs and the timing of this would suggest that this is not an acute myocardial infarction but rather sepsis which has been developing over at least a couple of days. Her white count is nearly 40,000. Her pH is well below 7. She is hemoconcentrated with hemoglobin hematocrit of 15 and 52. She also has transaminitis with an elevated alkaline phosphatase suggesting shock liver. Her creatinine is nearly 7 also suggesting intravascular volume depletion. The troponin elevation is probably demand ischemia. At this point I would not consider angiography now or in the near future. We need to find out if she survives the sepsis and how her central nervous system handles this. We can then make a decision about any further testing which may need to be done from a cardiac standpoint. 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
--- NOTE | 2019-08-24 17:36 | ECG_ITS ---
Measurements Intervals [place] Rate: 112 P: ID: 0 QRS: 150 QRSD: 89 T: -76 QT: 318 QTc: 434 ATRIAL FIBRILLATION WITH RAPID VENTRICULAR RESPONSE POSSIBLE RIGHT VENTRICULAR HYPERTROPHY [SOME/ALL OF: PROMINENT R IN V1, LATE TRANSITION, RAD, GENEVA, SSS] LATERAL MYOCARDIAL INFARCTION , OF INDETERMINATE AGE [40+ ms Q WAVE AND/OR ST/T ABNORMALITY IN I/aVL/V5/V6] MODERATE T-WAVE ABNORMALITY, CONSIDER ANTERIOR ISCHEMIA [-0.1+ mV T WAVE IN V3/V4] MODERATE T-WAVE ABNORMALITY, CONSIDER INFERIOR ISCHEMIA [-0.1+ mV T WAVE IN II/aVF] Compared to ECG 07/14/2015 04:13:22 Myocardial infarct finding now present T-wave abnormality now present Possible ischemia now present Electronically Signed On 08-24-2019 18:38:02 FRONT DESK ATTENDANT by Dao Perez M.D. [email or web address]
[2019-08-24 18:49] LABS: Anion Gap 21.7 (5-19); Blood Urea Nitrogen 72 mg/dL (8-23); Calcium 6.5 mg/dL (8.5-10.5); Carbon Dioxide 18 mmol/L (22-29); Chloride 95 mmol/L (98-107); Glucose 192 mg/dL (74-106); Osmolality Calculated 279 mOsm/kg (285-295); Sodium 132 mmol/L (136-145)
--- NOTE | 2019-08-24 18:54 | XRR_ITS ---
PROCEDURE INFORMATION: Exam: XR Chest, 1 View Exam date and time: 08/24/2019 6:55 PM Age: 78 years old Clinical indication: Device placement; Other: Dialysis cath; Additional info: Dialysis cath placement TECHNIQUE: Imaging protocol: XR of the chest Views: 1 view. COMPARISON: CR XR chest 1V portable [id number] 08/24/2019 11:56 AM FINDINGS: Tubes, catheters and devices: Left central venous catheter tip in the superior vena cava. Right central venous catheter tip in the superior vena cava. Endotracheal 2 approximately 2 cm above the bobbi. NG tube tip in the stomach. Lungs: Partially obscured by artifact. No consolidation. Pleural space: No pleural effusion. No pneumothorax. Heart/Mediastinum: Unremarkable. No cardiomegaly. Bones/joints: No acute findings. XR/XR chest 1V portable [id number] IMPRESSION: Right central venous catheter tip in the superior vena cava.
[2019-08-24 19:05] LABS: Potassium 2.7 mmol/L (3.5-5.1)
--- NOTE | 2019-08-24 19:07 | P.CONIM_ITS ---
Providers/Reason For Consult Consulting Physican/Specialty*: Nephro Reason for Consult*: Renal failure and acidosis Attending Physician: Ventura León MD Primary Care Provider: Aditi Colon MD History of Present Illness History of Present Illness Thanks for consult. The history is taken from the chart and discussion with the team members. Mrs Martin was apparently suffering from chest pain for the last day or so. 911 was called by her neighbor. When the stitch bonding machine tender arrived they initiated CPR for asystolic cardiac arrest. She was given 2 doses of epinephrine in route. Here in the emergency room she was intubated using etomidate and succinylcholine. This was after a esophageal airway was removed and she failed to breathe on her own. She was hypotensive. Dopamine was originally started but this did not help with her blood pressure. She was then changed to Levophed where she is now (at 10mcgs). Her blood pressure now is 132/54. Her baseline rhythm is atrial fibrillation. She is still in atrial fibrillation. She has a severe derangement in her electrolytes including a pH < 7. Initial K 5.2, . Rivers placed has produced very little urine, just 75 ml over the last few hours. No known history of renal failure, and historic labs in our system show a creatinine of 1.4-1.7. Review of Systems General: Reports: ROS unobtainable due to endotracheal tube, ROS unobtainable due to medical condition and ROS unobtainable due to mental status Meds/Allergies Home Medications and Allergies Home Medications Medication Instructions Recorded Confirmed Type Unable to Assess 08/24/19 08/24/19 History Current Medications Current Medications Generic Name Dose Route Start Last Admin Trade Name Freq PRN Reason Stop Dose Admin Albuterol/Ipratropium 3 ml 08/24/19 15:00 08/24/19 17:33 Duoneb INHALATION Not Given Q6H.RESPIRATORY DECLAN Norepinephrine Bitartrate 4 mg 254 mls @ 0 mls/hr 08/24/19 11:45 08/24/19 12:25 / Dextrose IV 2 mcg/min .Q0M DECLAN 7.6 mls/hr Administration Protocol Per Protocol Propofol 1,000 mg in 100 mls @ 0 mls/hr 08/24/19 12:15 08/24/19 12:24 Diprivan IV 5 mcg/kg/min .Q0M DECLAN 1.7 mls/hr Administration Protocol Per Protocol Sodium Bicarbonate 150 meq/ 1,150 mls @ 200 mls/hr 08/24/19 14:45 08/24/19 16:26 Dextrose IV 10 mls/hr .Q5H45M DECLAN Administration PFSH Acute PFSH: Statuses (acute, chronic, etc) shown below reflect problem list status as previously entered and may not be historically accurate Medical History (Updated 08/24/19 @ 17:07 by Willian Irizarry MD) Anemia (Acute) Iron deficiency Arthritis (Acute) Atrial fibrillation (Acute) Chronic Cardiopulmonary arrest (Acute) GI bleeding (Acute) Nephrolithiasis (Acute) Pelvic fracture (Acute) Peptic ulcer disease (Acute) Radius fracture (Acute) Renal failure (Acute) Spinal fracture (Acute) Thyroid disease (Acute) Transaminitis (Acute) Ulna fracture (Acute) Surgical History H/O lithotripsy (Acute) H/O: hysterectomy (Acute) Hx of breast augmentation (Acute) Social History Smoking and tobacco status: unknown if ever smoked Vitals/I&O/Wt Last Vital Signs Pulse 87 08/24/19 17:55 Resp 14 08/24/19 17:55 BP 117/73 08/24/19 17:55 Pulse Ox 91 08/24/19 17:55 Weight last 48 hrs Weight 56.699 kg Physical Exam HENMT: COMMON NORMALS: normocephalic HEAD & SCALP: normal to inspection and normocephalic FACE & SINUS: normal facial exam Neck/C-Spine: COMMON NORMALS: no JVD Lymph: LYMPHATIC: no lymphadenopathy noted Resp: COMMON NORMALS: normal respiratory effort and no retractions Cardio: COMMON NORMALS: no JVD and regular rate RATE: regular rate Neuro: ROLANDO COMA SCALE: other Urinary Catheter Management^: Rivers: Cath Placed During This Visit: no Data Micro: Micro: Microbiology 08/24/19 11:55 Gram Stain - Final Sputum - Endotrac heal Tube Aspirate 08/24/19 12:51 Blood Culture - Pr eliminary Blood SPECIMEN [facility] JOYCE 08/24/19 12:05 Blood Culture - Pr eliminary Blood SPECIMEN [facility] JOYCE A&P Additional A&P Information 1. Renal Failure - Likely to have developed ATN - given severity of acidosis will dialyze her emergently this evening however, given fragility of cardiac status will have a relatively threshold for terminating treatment if she doesn't tolerate this - 3K bath, 35 bicarb - CRRT not available in this facility - daily eval for additional need - am labs - avoid the usuals 2. S/.p cardiac arrest - per Dr Irizarry and the team 3. 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
[2019-08-24] MEDS: succinylcholine 20 mg/mL SDV 10mL 80 MG IVP (19:13)
--- NOTE | 2019-08-24 19:15 | PM.OP ---
Operative Report Date of procedure: 08/24/19 Pre-op Diagnosis: Acute renal failure requiring dialysis access Post-op diagnosis: same Procedure Done: Placement of maharkur catheter in the right internal jugular vein Ultrasound guidance to access right internal jugular vein Pathology: none sent Surgeon: Aron Hilton Anesthesia: None Estimated blood loss (mL): 10 Condition: critical Disposition: ICU Procedure: The patient's right neck and chest was prepped and draped in a sterile manner after consent had been obtained. An ultrasound of the right internal jugular vein identified good flow with no evidence of thrombus. Using ultrasound guidance the introducer needle was used to access the right internal jugular vein, guidewire was passed and the introducer needle was removed. Using 11 blade skin incision at the entry site is extended and serial dilators were passed over the guidewire. The Maharkur dialysis catheter was placed over the guidewire and the guidewire was removed. Both ports withdrew blood and flushed easily. The catheter sutured to skin using 2-0 nylon suture. Sterile dressings were applied. Chest x-ray is pending. Patient tolerated the procedure well.
[2019-08-24 19:38] LABS: Lactic Sepsis W/Reflex 1.9 mmol/L (0.5-2.2)
[2019-08-24 19:42] LABS: Troponin 5 6HR 499.8 ng/L (0-10); Troponin 5 6HR Delta 304.8 ng/L (0-12)
[2019-08-24 20:07] LABS: Alanine Aminotransferase 47 U/L (0-33); Albumin Level 2.5 g/dL (3.5-5.2); Alkaline Phosphatase 83 IU/L (35-105); Anion Gap 27.4 (5-19); Blood Urea Nitrogen 74 mg/dL (8-23); Calcium 7.3 mg/dL (8.5-10.5); Carbon Dioxide 13 mmol/L (22-29); Chloride 93 mmol/L (98-107); Globulin 2.5 g/dL (1.3-4.6); Glucose 145 mg/dL (74-106); Potassium 3.4 mmol/L (3.5-5.1); Sodium 130 mmol/L (136-145); Total Bilirubin 0.4 mg/dL (0.15-1.2)
[2019-08-24 20:13] LABS: Troponin T (5th) Once 510 ng/mL (0-10)
[2019-08-24 20:15] LABS: Aspartate Amino Transferase 154 U/L (0-32)
[2019-08-24] MEDS: budesonide 0.5 mg/2 mL Neb INHALATION (21:11)
[2019-08-24] MEDS: ipratropium-albuterol 3 mL Neb INHALATION (21:11)
--- NOTE | 2019-08-24 22:16 | PM.EVENT ---
Event Note Event Note: Patient had a PEA while I was managing another patient in ICU, code was run for 2 minutes, chest compressions were started right away, ventilator was detached and Ambu bag was initiated, chest compressions were done for 2 minutes, she had return of pulse after 1 dose of epinephrine, at that time her blood pressure was systolic 40 mmHg and pulse was 70 with sinus arrhythmia, I called the daughter, who told us that about her DNR and DNI status, nurse also witnessed that over the phone. Vasopressors and endotracheal tube was removed
[2019-08-24 22:33] LABS: ABG PH Result 7.45 (7.35-7.45); Oxygen Device vent; Potassium Level - ABG 2.7 mmol/L (3.5-5.0)
[2019-08-24] MEDS: morphine 4 mg/mL SDV 1 mL 2 MG IVP (23:21)
--- NOTE | 2019-08-25 00:26 | PC.NURSE ---
Time of 9324
[2019-08-26 14:23] LABS: Blood Gas Vent Mode CMV
[2019-08-26 14:29] LABS: Blood Gas Allen Test Pos; Blood Gas Sample Type Arterial
[2019-08-26 14:30] LABS: Alveolar-Arterial Oxygen Gradi 52.2 mmHg (5-10); Arterial Blood Gas Hematocrit 41.2 % (37-47); HCO3 ABG 23.5 mmol/L (22-26); HGB O2 Sat 86.1 % (95-100); Methemoglobin 2.5 % (0.4-1.5); Oxygen Saturation ABG 87.7; PO2 ABG 54.5 mmHg (80.0-100.0); Total Hemoglobin 13.4 g/dL (12-16)
[2019-08-26 16:58] LABS: Blood Gas CCRB Time 2345
[2019-08-26 17:03] LABS: ABG PH Result 6.91 (7.35-7.45)
[2019-08-26 17:04] LABS: Base Excess ABG -28.7 mmol/L (-2.0-2.0); HCO3 ABG 2.8 mmol/L (22-26); Oxygen Saturation ABG 96.7; Potassium Level - ABG 5.4 mmol/L (3.5-5.0)
[2019-08-26 17:05] LABS: Arterial Blood Gas Hematocrit 48.5 % (37-47); Blood Gas Operator Identificat CAK; Blood Gas Sample Type ARTERIAL; Oxygen Device VENT
[2019-08-26 17:06] LABS: Alveolar-Arterial Oxygen Gradi 167.9 mmHg (5-10); Blood Gas CCRB Time 1320; HGB O2 Sat 96.4 % (95-100); Ionized Calcium Level - ABG 1.2 mmol/L (1.1-1.4); Methemoglobin 1.5 % (0.4-1.5); Total Hemoglobin 15.8 g/dL (12-16)
[2019-08-26 17:09] LABS: Blood Gas CCRB Time 2345
--- NOTE | 2019-08-31 18:19 | PM.DCS ---
Discharge Providers Date of Admission: 08/24/19 14:16 Date of Discharge: Date of Discharge: 08/25/19, date of 11:34 PM on August 242019. Attending Provider at Admission: Ventura León MD Attending Provider at Discharge: Ventura León MD Primary Care Provider: Aditi Colon MD Diagnoses at Discharge Discharge Diagnosis (1) Atrial fibrillation: Status: Acute Problem details: Chronic (2) Hyponatremia: Status: Acute (3) Hyperkalemia: Status: Acute (4) Metabolic acidosis: Status: Acute (5) Kidney failure: Status: Acute (6) Septic shock: Status: Acute (7) Transaminitis: Status: Acute (8) Elevated troponin: Status: Acute (9) Cardiopulmonary arrest: Status: Acute Reason for Visit Reason for Visit: Reason For Visit: resp distress Hospital Course Discharge Summary: Elo Martin is a 78 year old female with past medical history of atrial fibrillation, hypothyroidism, chronic kidney disease who was brought to the hospital by the EMS on 08/24/19. As per the neighbors who are the caregiver of the patient she has been complaining of chest congestion for last 1 week and was not able to breathe today morning so EMS was called. When EMS reached the patient she was found to be in asystole and she achieved [place] after around 4 cycles of CPR. Lama was placed in but on presentation to the ER it was found to be in her esophagus. She was found to have distention of her abdomen and extensive air in the belly. Patient was intubated and NG tube was placed. Patient blood work revealed that she was in multiorgan failure, sepsis with elevated white count and severely low blood pressures requiring multiple fluid boluses and Levophed. Patient was in kidney failure with metabolic acidosis and hyperkalemia. Nephrology was consulted and given persistent severe acidosis even after sodium bicarbonate drip it was decided patinet would need dilaysis . Surgery was consulted for emergent shiley placement. Patient underwent emergent Shiley placement which was uneventful. Even after 2 pressors she remained to be borderline hypotensive along with acidotic and with continued maximum support she underwent PEA for which 2 minutes of CPR was done again after which she achieved [place]. On further discussion and ablation of patient's condition to her daughter she was made DNR/DNI. Son came to the bedside and made her comfort care for which she was terminally extubated and vasopressors were stopped. Patient at 11:34 PM on August 242019. Physical Exam Narrative: EXAM NARRATIVE: Patient last night. Urinary Catheter Management^: Rivers: Cath Placed During This Visit: no Discharge Data Data Completed and Pending: Completed Studies During Hospitalization Category Date Time Status CT abdomen pelvis wo con 04108 Stat Cat Scan 08/24/19 13:[address] chest wo con 7 1250 Urgent Cat Scan 08/24/19 14:[address] head wo con* 7 0450 Routine Cat Scan 08/24/19 16:42 Completed CXRP [XR chest 1V portable [id number]] S tat Exams 08/24/19 18:54 Completed XR chest 1V rosemary ble 49515 Stat Exams 08/24/19 11:36 Completed Vitals: Last Vital Signs Pulse 0 L 08/24/19 23:35 Resp 14 08/24/19 21:15 BP 67/47 08/24/19 22:50 Pulse Ox 89 L 08/24/19 23:10 Discharge Plan Discharge Patient Disposition: Condition: Critical Discharge Date/Time: 08/24/19 23:34 Probable Cause of Probable cause of : Cardiac arrest Discharge Attestations Time Spent in Discharge Care*: less than 30 min Quality Metrics Clinical Quality Measures During this hospital stay, did patient experience: None Coding Level of Care Code Acute 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
== END 2019-08-24 23:34 | disposition expired | DRG 871 ==
LOC: ER 13:49 → ICU 15:39
PROVIDERS: Internal Medicine Nephrology; Admitting Provider Student in an Organized Health Care Education/Training Program; Emergency Provider Family Medicine; Family Provider Family Medicine; PCP Family Medicine; Visit Provider Student in an Organized Health Care Education/Training Program
DX: A41.9 Sepsis, unspecified organism (principal); R65.21 Severe sepsis with septic shock; E87.2 Acidosis; N17.9 Acute kidney failure, unspecified; E87.1 Hypo-osmolality and hyponatremia; I48.20 Chronic atrial fibrillation, unspecified; I46.9 Cardiac arrest, cause unspecified; Z66 Do not resuscitate; Z51.5 Encounter for palliative care; E87.5 Hyperkalemia; E86.0 Dehydration; R74.0 Nonspecific elevation of levels of transaminase and lactic acid dehydrogenase [LDH]; R74.8 Abnormal levels of other serum enzymes; R00.1 Bradycardia, unspecified; I34.0 Nonrheumatic mitral (valve) insufficiency
CPT/HCPCS: 12345; 36415; 36600; 51702; 70450; 71045; 71250; 74176; 80048; 80051; 80053; 81001; 82810; 83540; 83550; 83605; 83986; 84145; 84484; 85007; 85025; 87040; 87070; 87077; 87186; 87205; 90935; 93005; 94002; 94640; 94799; 96365; 96366; 96374; 99283; A4570; C1752; J0171; J0330; J1956; J2270; J2704; J3370; J3490; J7030; J7050; J7626; Q3014